=== PATIENT | female | born 1980 | race Caucasian/White ===

== ENCOUNTER 2023-04-27 17:02 | Emergency (ER) | payer BC, SELFPAY ==
[2023-04-27 17:03] VITALS: BP 200/100
[2023-04-27 17:27] LABS: % Basophils 0.2 % (0-2); % Eosinophils 0.7 % (0-6); % Immature Granulocytes 0.3 % (0-0.5); % Lymphocytes 10.7 % (20.5-51.1); % Monocytes 5.2 % (1.7-9.3); % Neutrophils 82.9 % (42.2-75.2); Absolute Eosinophils 0.1 10^3/uL (0-0.7); Absolute Lymphocytes 1.3 10^3/uL (1.2-3.4); Absolute Monocytes 0.6 10^3/uL (0.1-0.6); Absolute Neutrophils 9.8 10^3/uL (1.4-6.5); Hematocrit 30.3 % (37.0-47.0); Hemoglobin 9.5 g/dL (12.0-16.0); Mean Corp Hgb Conc. 31.4 g/dL (33.0-37.0); Mean Corpuscular Hgb 23.6 pg (27.0-31.0); Mean Corpuscular Volume 75.4 fL (81.0-99.0); Mean Platelet Volume 8.2 fL (7.4-10.4); Nucleated Red Blood Cells % 0 %; Platelet Count 346 10^3/uL (130-400); Red Blood Cell Count 4.02 10^6/uL (4.20-5.40); Red Cell Dist. Width 16.7 % (11.5-14.5); White Blood Cell Count 11.8 10^3/uL (4.8-10.8)
[2023-04-27 17:31] LABS: Urine Albumin Trace (Neg - Trace); Urine Bilirubin Negative (Negative); Urine Character Slightly Cloudy (Clear); Urine Color Red; Urine Glucose Negative (Negative); Urine Ketone Negative (Negative); Urine Leukocyte 2+ (Negative); Urine Nitrite Negative (Negative); Urine Occult Blood 4+ (Negative); Urine Urobilinogen Negative (Neg - 1+)
[2023-04-27 17:39] LABS: HCG, Serum Qualitative Screen Negative
[2023-04-27 17:43] LABS: ALT (SGPT) 18 U/L (0-35); AST (SGOT) 24 U/L (14-36); Albumin 4.7 g/dl (3.5-5.0); Alkaline Phosphatase 82 U/L (38-126); Blood Urea Nitrogen 11 mg/dl (7-17); Calcium 9.7 mg/dl (8.4-10.2); Carbon Dioxide 25 mmol/L (22-30); Chloride 108 mmol/L (98-107); Glucose 104 mg/dl (70-99); Lipase 63 U/L (23-300); Potassium 3.8 mmol/L (3.5-5.1); Sodium 140 mmol/L (135-145); Total Bilirubin 0.5 mg/dl (0.2-1.3); Total Protein 8.1 g/dl (6.3-8.2); Urine Red Blood Cell 90-100 /HPF (0-2); Urine Squamous Cell >30 /LPF (Few); eGFR > 60.00
[2023-04-27 17:44] LABS: Urine Bacteria Few (Negative)
[2023-04-27 17:55] LABS: Troponin I < 0.012 ng/ml
[2023-04-27 18:18] VITALS: BMI 23.5
[2023-04-27 21:33] LABS: Urine Albumin 1+ (Neg - Trace); Urine Bilirubin Negative (Negative); Urine Character Slightly Cloudy (Clear); Urine Color Straw; Urine Glucose Negative (Negative); Urine Ketone Negative (Negative); Urine Leukocyte Trace (Negative); Urine Nitrite Negative (Negative); Urine Occult Blood 4+ (Negative); Urine Specific Gravity 1.015 (<1.030); Urine Urobilinogen Negative (Neg - 1+)
[2023-04-27 21:46] LABS: Urine Squamous Cell 16-20 /LPF (Few)
[2023-04-27 21:47] LABS: Urine Bacteria Few (Negative); Urine Red Blood Cell 40-50 /HPF (0-2); Urine White Cell 0-2 /HPF (0-5)
[2023-04-27 21:53] VITALS: BP 168/97
--- NOTE | 2023-04-27 22:19 | ED.GENMED ---
History of Present Illness
General
Chief Complaint: Chest Pain
Source: patient
Exam Limitations: none
Time Seen by Provider: 04/27/23 19:00
Nursing documentation reviewed up to this point in time: agreed with
Travel History
Have you had any contact with someone who has COVID-19?: No
Do you have any symptoms of coronavirus? Fever > 100 degrees, chills, cough, shortness of breath, sore throat, loss of taste or smell, muscle aches, or headache?: No
History of Present Illness
History of Present Illness:
Patient to ED with complaint of left upper quad abdominal, left lower chest pain. Symptoms have been ongoing this week. She was seen at , no concerning findings on exam. States she continues with pain so she came to ED. Denies fever/chills,
n/v/d. No prior history of same. taking IBU with temporary relief.
Past History
Past History
ED Past Medical History: None
ED Past Surgical History: None
Social History
Tobacco: Non-smoker
Alcohol: Occasional
Drug: None
Review of Systems
Review of Systems
Allergies reviewed?: Yes
All Other Systems: ROS reviewed and negative except as documented in HPI and ROS
Constitutional: Reports no symptoms
EENT: Reports no symptoms
Respiratory: Reports no symptoms
Cardiac: Reports chest pain (left lower chest)
ABD/GI: Reports abdominal pain (LUQ)
: Reports no symptoms
Musculoskeletal: Reports no symptoms
Skin: Reports no symptoms
Neurological: Reports no symptoms
Psychiatric: Reports no symptoms
Phy Exam
General Physical Exam
General Presentation: well appearing and no apparent distress
General age: appears stated age
General Skin: warm and dry
General Habitus: normal
General Mental: alert
Cardiovascular Exam
Cardiovascular Exam: regular rate/rhythm and no edema
Pulmonary Exam
Pulmonary Exam: lungs clear, no respiratory distress, no rales, chest non tender, no crackles, no rhonchi, no stridor, no wheezing and no cough
Gastrointestinal Exam
Gastrointestinal Exam: normal bowel sounds, non tender, soft, no organomegaly, no pulsatile mass, non distended, no cva tenderness and other (left flank pain)
Musculoskeletal Exam
Musculoskeletal Exam: full ROM and neuro vasc intact
Skin Exam
Skin Exam: normal color, warm/dry and no rash
Psychiatric Exam
Psychiatric Exam: normal mood/affect
Scores
Heart Score for Chest Pain Patients
STEMI patient?: Not applicable
Course
Orders/Labs/Results
Orders:
Orders
04/27/23 17:07
Electrocardiogram (*1) Urgent
Reason for Study: Chest Pain
EKG- Treatment ONCE
Test Result ONCE
04/27/23 17:18
Complete Blood Count/With Diff Urgent
Comprehensive Metabolic Panel Urgent
HCG, Serum Qualitative Screen Urgent
Lipase Urgent
Troponin I Urgent
Urinalysis Reflex To Culture Urgent
Date Specimen was Collected: 04/27/23
Time Specimen was Collected: 17:08
Urine Microscopic Reflex Cult Urgent
Urine Culture Urgent
BENJAMIN Source: U
Specimen Description:
Date Specimen was Collected: 04/27/23
Time Specimen was Collected: 17:08
04/27/23 19:08
CT Abd/pel Without Iv Or Oral Urgent
Comment:
Reason For Exam: left flank pain
04/27/23 21:24
Urinalysis Urgent
Date Specimen was Collected: 04/27/23
Time Specimen was Collected: 20:36
Urine Microscopic Urgent
Date Specimen was Collected: 04/27/23
Time Specimen was Collected: 20:36
Abnormal Lab Results
04/27/23 04/27/23
17:18 21:24
WBC 11.8 H 10^3/uL
(4.8-10.8)
RBC 4.02 L 10^6/uL
(4.20-5.40)
Hgb 9.5 L g/dL
(12.0-16.0)
Hct 30.3 L %
(37.0-47.0)
MCV 75.4 L fL
(81.0-99.0)
MCH 23.6 L pg
(27.0-31.0)
MCHC 31.4 L g/dL
(33.0-37.0)
RDW 16.7 H %
(11.5-14.5)
Absolute Neuts (auto) 9.8 H 10^3/uL
(1.4-6.5)
Neutrophils % 82.9 H %
(42.2-75.2)
Lymphocytes % 10.7 L %
(20.5-51.1)
Chloride 108 H mmol/L
(98-107)
Glucose 104 H mg/dl
(70-99)
Urine Occult Blood 4+ A
(Negative)
Ur Occult Blood Reflex 4+ A
(Negative)
Ur Leukocyte Esterase Trace A
(Negative)
Leukocyte Esterase Rfl 2+ A
(Negative)
Urine RBC 90-100 A /HPF 40-50 A /HPF
(0-2) (0-2)
Urine Bacteria Few A
(Negative)
Urine Bacteria (Reflex) Few A
(Negative)
Urine Albumin 1+ A
(Neg - Trace)
04/27/23 17:18
04/27/23 17:18
Vital Signs
Initial and Last Documented VS:
Initial Vital Signs
Temp Pulse Resp BP Pulse Ox
98.0 F 101 16 200/100 98
04/27/23 17:03 04/27/23 17:03 04/27/23 17:03 04/27/23 17:03 04/27/23 17:03
Last Documented Vital Signs
Temp Pulse Resp BP Pulse Ox
98.0 F 98 16 168/97 98
04/27/23 17:03 04/27/23 21:53 04/27/23 17:03 04/27/23 21:53 04/27/23 17:03
*Critical Care Note
Total Time (30-74mins, 75-104mins- exclusive of procedures): Not Applicable
Update Note
Update Note:
Labs CT reviewed with pateint. No findings to explain her symptoms. She is discharged home and will follo wpu with PCP on Saturday. given instructions on s/s to return to ED and she is agreeable to plan
ED Attending Note
-
Portions of this chart may have been created with voice recognition software.� Occasional wrong word or��sound alike� substitutions may have occurred due to the inherent limitations of voice recognition software.
Discharge Plan
Departure
Patient Disposition: Home (Routine Discharge)
Date of Disposition: 04/27/23
Time of Disposition: 21:59
Patient with high blood pressure during this ER visit?: No
Condition: Good
Covid-19: Not Applicable
Discharge Problem:
Abdominal pain
Instructions: Abdominal Pain, Adult ED
Referrals:
NONE,* [Family Provider] -
Activity Restrictions/Additional Instructions:
Follow up with your family doctor on Saturday. Return to the emergency department immediately for any changes in/worsening of your symptoms.
Interventions
Interventions:
*Risk Screen - Suicide Last Done: 04/27/23 19:13
*General Assessment Last Done: 04/27/23 19:12
*Neglect/Abuse Screening Last Done: 04/27/23 19:12
ED- Fall Risk Assessment Last Done: 04/27/23 18:18
*ED COVID-19 Vaccine History Last Done: 04/27/23 17:03
*Nursing Disposition Last Done: 04/27/23 22:09
ED- Cardiac Assessment Last Done: 04/27/23 18:18
== END 2023-04-27 22:21 | disposition home or self-care (01) ==
LOC: EMR 17:02
PROVIDERS: Emergency Medicine; Nurse Practitioner; EMERGENCY PHYSICIAN Emergency Medicine
DX: R10.12 Left upper quadrant pain (principal); R07.89 Other chest pain
CPT/HCPCS: 99284; 74176; 80053; 81003; 81015; 83690; 84484; 84703; 85025; 87086; 93005